=== PATIENT | female | born 1995 | race Hispanic/Latino ===

== ENCOUNTER 2020-11-04 11:30 | Day surgery (SDC) | payer OTHER, SELFPAY ==
[2020-11-04 13:58] VITALS: BMI 37.1
[2020-11-04 14:08] LABS: Amnisure Internal Control QC ACCEPTABLE (ACCEPTABLE); Amnisure Test No Membranes Rupture (No Rupture)
[2020-11-04] MEDS ORDERED: hydrALAZINE 20 MG/ML VIAL SLOW IVP PRN (15:25)
--- NOTE | 2020-11-05 06:24 | PRG ---
DATE OF SERVICE: 11/04/2020 PRIMARY WIRE MACHINE CUTTER: Sisi Eun Pizano, certified nurse-wet roller. CHIEF COMPLAINT: Elevated blood pressure and leakage of fluid. HISTORY OF PRESENT ILLNESS: The patient is a 25-year-old, G1, P0, female with an intrauterine at 39 weeks and 0 days, who was sent from her clinic office for complaints or concerns of elevated blood pressure. Upon arrival, the patient also reports that she has been having about a week's history of some irregular, inconsistent leakage of fluid that she reports as more watery. She denies requiring any panty liners, but states that she changes her underwear about twice a day. She denies vaginal bleeding or uterine contractions. The patient denies fever, cough, headache, chest pain, shortness of breath, nausea, vomiting, diarrhea, constipation, hip problems, knee problems, or muscle weakness. She denies any new rashes or urinary urgency or frequency. PAST MEDICAL HISTORY: Negative. PAST SURGICAL HISTORY: Negative. SOCIAL HISTORY: Denies drug, alcohol, or tobacco use. ALLERGIES: NO KNOWN DRUG ALLERGIES. MEDICATIONS: vitamins. OBSTETRIC LABORATORY DATA: Blood type is O positive. She is GBS positive. She is rubella immune. Hepatitis B surface antigen is negative. RPR is negative. HIV is nonreactive. REVIEW OF SYSTEMS: Per HPI. PHYSICAL EXAMINATION: VITAL SIGNS: Blood pressure on arrival was 135/83, heart rate of 81, respiratory rate of 16, saturating 96% to 98% on room air, and temperature 98.4. Over the course of 3 hours, blood pressures have been taken regularly and have remained in the 120s to 130s over 70s to 80s. She had a single blood pressure at 90 diastolic. GENERAL: She appears to be in no acute distress. She is alert, oriented, cooperative, and pleasant to interact with. HEAD: Normocephalic and atraumatic. LUNGS: Clear to auscultation bilaterally. HEART: Regular rate and rhythm. ABDOMEN: Gravid, soft, and nontender. EXTREMITIES: Nontender and nonedematous. GENITOURINARY: The perineum is moist and is glistening. Vagina is moist. She does have a little bit of a white discharge, reminiscent of physiologic discharge. She has no pooling on Valsalva or cough. Cervical exam is closed, thick, and high per nursing staff. heart tracing shows the fetus with a baseline in the 130s with moderate long-term variability, positive 15 x 15 accelerations, no decelerations. She has some irritability and infrequent contractions. LABORATORY STUDIES: AmniSure test is negative. VP3 is negative for Brittany, Trichomonas, and Gardnerella. The patient has negative protein on her dipstick in clinic. ASSESSMENT AND PLAN: The patient is a 25-year-old, G1, P0, female with an intrauterine at 39 weeks and a day, who was sent to be evaluated for possible -induced hypertension. The patient has no evidence of -induced hypertension at this time with normal blood pressures and negative protein in her urine. The patient also has no evidence of rupture of membranes or any vaginal infection identified by VP3. The discharge that she is experiencing is probably physiologic in nature with a mixture of transudate in this physiologic discharge. Fetus has a category 1 tracing and reactive NST. The patient is being discharged home with reassurance and instructions to follow up with her primary OB in the next 3 to 5 days. Job ID: [id number]
== END 2020-11-04 16:09 | disposition home health service (06) ==
LOC: L&D/OP 11:30
PROVIDERS: ATTEND Student in an Organized Health Care Education/Training Program
DX: O99.891 Other specified diseases and conditions complicating pregnancy (principal); R03.0 Elevated blood-pressure reading, without diagnosis of hypertension; N89.8 Other specified noninflammatory disorders of vagina; Z3A.39 39 weeks gestation of pregnancy
CPT/HCPCS: 84112; 87480; 87510; 87660; 99284

== ENCOUNTER 2020-11-07 10:52 | Inpatient (IN) | payer MEDICAID, OTHER, SELFPAY ==
[2020-11-07] MEDS ORDERED: Bupivacaine HCl 0.25%/Epi 0.0005/PF 10 ML VIAL FS ONE (11:25)
[2020-11-07] MEDS ORDERED: Bupivacaine PF 0.5% 30 ML VIAL ONE (11:25)
[2020-11-07 11:39] VITALS: BMI 37.1
[2020-11-07] MEDS ORDERED: Penicillin G Potassium 5 MILL.UNITS in Sodium Chloride 0.9% 100 ML IVPB SCH (11:45)
[2020-11-07] MEDS ORDERED: hydrALAZINE 20 MG/ML VIAL SLOW IVP PRN (11:45)
[2020-11-07] MEDS ORDERED: Ibuprofen 800 MG TAB PO PRN (11:45)
[2020-11-07] MEDS ORDERED: Lidocaine 1% (PF) 30 ML VIAL SC PRN (11:45)
[2020-11-07] MEDS ORDERED: Acetaminophen 500 MG TAB PO PRN (11:45)
[2020-11-07] MEDS ORDERED: Misoprostol 200 MCG TAB PR PRN (11:45)
[2020-11-07] MEDS ORDERED: Calcium Carbonate 500 MG ChewTAB PO PRN (11:45)
[2020-11-07] MEDS ORDERED: NS / Oxytocin 40 units/1000ml 1,000 ML IV PRN (11:45)
[2020-11-07] MEDS ORDERED: Promethazine HCl 25 MG/ML VIAL IM PRN (11:45)
[2020-11-07] MEDS ORDERED: Butorphanol Tartrate 1 MG/ML VIAL SLOW IVP PRN (11:45)
[2020-11-07] MEDS ORDERED: HYDROcodone/Acetaminophen 5/325 mg Tablet PO PRN ×2 (11:45)
[2020-11-07] MEDS ORDERED: Penicillin G Potassium 5 MILL.UNITS VIAL ONE (11:53)
[2020-11-07 12:07] LABS: Hemoglobin 13.2 g/dL (12.0-16.0); Mean Corpuscular HGB CONC 33.6 g/dL (32.0-36.0); Mean Corpuscular Hemoglobin 29.3 pg (27.0-31.0); Mean Corpuscular Volume 87.2 fL (78.0-98.0); Mean Platelet Volume 8.3 fL (7.4-10.4); Platelet Count 283 thou/uL (130-400); RBC Distribution Width 13.9 % (11.5-14.5); Red Blood Cell (RBC) Count 4.49 mill/uL (4.20-5.40); White Blood Cell (WBC) Count 9.2 thou/uL (4.8-10.8)
[2020-11-07 12:25] LABS: ALT (SGPT) 12 U/L (8-55); AST (SGOT) 19 U/L (5-34); Albumin 3.2 g/dL (3.5-5.0); Alkaline Phosphatase 207 U/L (40-110); Anion Gap 13 mmol/L (10-20); BUN (Urea Nitrogen) 6 mg/dL (7.0-18.7); Bilirubin, Total Less than 0.2 mg/dL (0.2-1.2); Calc. Creatinine Clearance 201 mL/min (70-130); Calcium 8.8 mg/dL (7.8-10.44); Carbon Dioxide 19 mmol/L (22-29); Chloride 108 mmol/L (98-107); Globulin 3.3 g/dL (2.4-3.5); Glucose 85 mg/dL (70-105); Potassium 4.6 mmol/L (3.5-5.1); Protein, Total 6.5 g/dL (6.0-8.3); Sodium 135 mmol/L (136-145)
[2020-11-07 12:43] LABS: Syphilis Antibody Nonreactive (Nonreactive); Syphilis Antibody Index 0.04 S/CO (<1.00 Non-Reactive)
[2020-11-07 12:44] LABS: HBSAg Index 0.17 S/CO (0-0.99); Hep B Surf Ag Non-Reactive S/CO (NonReactive)
[2020-11-07] MEDS: Misoprostol 100 MCG TAB VAG SCH (12:44)
[2020-11-07] MEDS ORDERED: NS w/ Oxytocin 30 units 500 ML ONE (16:54)
[2020-11-07 18:28] LABS: SARS-CoV-2 PCR by NAA Not Detected (NotDetected)
[2020-11-07] MEDS ORDERED: Labetalol HCl 100 MG/20 ML VIAL SLOW IVP PRN (19:37)
[2020-11-07] MEDS: Penicillin G 2.5 MILL.units 2.5 MILL.UNITS in Premix Bag 1 BAG IVPB SCH (20:58)
[2020-11-08] MEDS: Lactated Ringer's 1,000 ML IV SCH ×2 (01:00→05:20)
[2020-11-08] MEDS: Penicillin G 2.5 MILL.units 2.5 MILL.UNITS in Premix Bag 1 BAG IVPB SCH ×5 (01:38→18:34)
[2020-11-08] MEDS ORDERED: Fentanyl 4 mcg/Bup 0.1% Cadd 100 ML ONE ×2 (04:36→20:06)
[2020-11-08] MEDS ORDERED: Ondansetron PF 4 MG/2 ML Vial IVP PRN (05:29)
[2020-11-08] MEDS ORDERED: ePHEDrine 50 MG/ML VIAL SLOW IVP PRN (05:29)
[2020-11-08] MEDS ORDERED: diphenhydrAMINE 50 MG/ML VIAL IVP PRN (05:29)
[2020-11-08] MEDS ORDERED: Promethazine HCl 25 MG/ML VIAL IM PRN (05:29)
[2020-11-08] MEDS ORDERED: Acetaminophen 325 MG TAB PO PRN (05:29)
[2020-11-08] MEDS ORDERED: Lactated Ringer's 500 ML IV PRN (05:29)
[2020-11-08] MEDS ORDERED: Naloxone HCl 0.4 mg/ml Vial IVP PRN ×2 (05:29)
[2020-11-08] MEDS ORDERED: Communication Order-Pharmacy FS SCH (05:30)
[2020-11-08] MEDS ORDERED: Fentanyl 4 mcg/Bupivacaine 0.1% Cassette 100 ML EPIDURAL SCH (05:30)
[2020-11-08] MEDS: Ondansetron PF 4 MG/2 ML Vial IVP PRN ×2 (06:16→17:23)
[2020-11-08] MEDS: Misoprostol 100 MCG TAB VAG SCH (19:49)
[2020-11-08] MEDS ORDERED: Azithromycin 500 MG in Sodium Chloride 0.9% 250 ML 250 ML IVPB SCH (21:00)
[2020-11-08] MEDS ORDERED: Bicitra 30 ML UDCUP PO PRN (21:00)
[2020-11-08] MEDS ORDERED: Famotidine/PF 20 mg/2ml Vial SLOW IVP PRN (21:00)
[2020-11-08] MEDS ORDERED: PHENYLEPHRINE-NS 100 MCG/ML 10 ML SYRINGE ONE (21:13)
[2020-11-08] MEDS ORDERED: Oxytocin 10 UNITS/ML VIAL ONE (21:13)
[2020-11-08] MEDS ORDERED: ePHEDrine 50 MG/ML VIAL ONE (21:13)
[2020-11-08] MEDS ORDERED: Lidocaine 2% 10 ML INJ ONE (21:13)
[2020-11-08] MEDS ORDERED: Ketorolac Tromethamine 30 MG/ML VIAL ONE (21:13)
[2020-11-08] MEDS: CEFAZOLIN 2 GM in Premix Bag 1 BAG IVPB SCH (21:23)
[2020-11-08] MEDS ORDERED: Morphine PF 10 MG/10 ML VIAL ONE (21:47)
[2020-11-08] MEDS ORDERED: Dexamethasone 4 mg/ml Vial ONE (22:04)
[2020-11-08] MEDS ORDERED: Ondansetron PF 4 MG/2 ML Vial ONE (22:04)
[2020-11-09] MEDS ORDERED: Acetaminophen 325 MG TAB PO PRN (01:02)
[2020-11-09] MEDS ORDERED: Lanolin Ointment 7 GM TUBE TOP PRN (01:02)
[2020-11-09] MEDS ORDERED: HYDROcodone/Acetaminophen 5/325 mg Tablet PO PRN ×2 (01:02)
[2020-11-09] MEDS ORDERED: hydrALAZINE 20 MG/ML VIAL SLOW IVP PRN (01:02)
[2020-11-09] MEDS ORDERED: Simethicone Chewable 80 MG TAB PO PRN (01:02)
[2020-11-09] MEDS ORDERED: Promethazine HCl 25 MG SUPP PR PRN (03:58)
[2020-11-09] MEDS ORDERED: Ondansetron PF 4 MG/2 ML Vial IVP PRN (03:58)
[2020-11-09] MEDS ORDERED: Ketorolac Tromethamine 30 MG/ML VIAL IVP PRN (03:58)
[2020-11-09] MEDS ORDERED: Naloxone HCl 0.4 mg/ml Vial IVP PRN ×2 (03:58)
[2020-11-09] MEDS ORDERED: Naloxone HCl 0.4 mg/ml Vial IV PRN (03:58)
[2020-11-09] MEDS ORDERED: Promethazine HCl 25 MG/ML VIAL IM PRN (03:58)
[2020-11-09] MEDS ORDERED: diphenhydrAMINE 50 MG/ML VIAL IVP PRN (03:58)
[2020-11-09] MEDS ORDERED: Communication Order-Pharmacy FS SCH (04:00)
[2020-11-09] MEDS: Lactated Ringer's 1,000 ML IV SCH ×2 (04:30→05:14)
[2020-11-09] MEDS: CEFAZOLIN 2 GM in Premix Bag 1 BAG IVPB SCH (05:11)
[2020-11-09] MEDS: Misoprostol 100 MCG TAB VAG SCH ×3 (05:12→05:16)
[2020-11-09] MEDS: Penicillin G 2.5 MILL.units 2.5 MILL.UNITS in Premix Bag 1 BAG IVPB SCH ×2 (05:14→05:15)
[2020-11-09 05:17] LABS: Hemoglobin 11.7 g/dL (12.0-16.0); Mean Corpuscular HGB CONC 33.8 g/dL (32.0-36.0); Mean Corpuscular Hemoglobin 29.6 pg (27.0-31.0); Mean Corpuscular Volume 87.6 fL (78.0-98.0); Mean Platelet Volume 8.2 fL (7.4-10.4); Platelet Count 245 thou/uL (130-400); RBC Distribution Width 13.7 % (11.5-14.5); Red Blood Cell (RBC) Count 3.95 mill/uL (4.20-5.40)
[2020-11-09] MEDS ORDERED: Ibuprofen 800 MG TAB PO SCH (06:00)
[2020-11-09] MEDS: Prenatal Vitamin 1 TAB PO SCH (08:35)
[2020-11-09] MEDS: Docusate 100 MG CAP PO SCH ×2 (08:35→22:00)
[2020-11-09] MEDS: Ferrous Sulfate 325 MG TAB PO SCH (08:43)
[2020-11-09] MEDS ORDERED: Polyethylene Glycol 3350 17 GM Packet PO SCH (09:00)
[2020-11-09] MEDS ORDERED: Adacel (T-DAP) 0.5 ML SYRINGE IM ONE (09:00)
[2020-11-09] MEDS: HYDROcodone/Acetaminophen 5/325 mg Tablet PO PRN ×3 (14:11→22:20)
[2020-11-10] MEDS: HYDROcodone/Acetaminophen 5/325 mg Tablet PO PRN (06:11)
[2020-11-10] MEDS ORDERED: Polyethylene Glycol 3350 17 GM Packet PO PRN (06:58)
[2020-11-10] MEDS: Ferrous Sulfate 325 MG TAB PO SCH (07:12)
[2020-11-10] MEDS: Prenatal Vitamin 1 TAB PO SCH (08:48)
[2020-11-10] MEDS: Docusate 100 MG CAP PO SCH ×2 (08:48→21:48)
[2020-11-10] MEDS: Ibuprofen 800 MG TAB PO SCH ×2 (13:46→21:49)
[2020-11-11] MEDS: Ibuprofen 800 MG TAB PO SCH ×2 (06:38→08:59)
[2020-11-11] MEDS: Docusate 100 MG CAP PO SCH (08:59)
[2020-11-11] MEDS: Prenatal Vitamin 1 TAB PO SCH (08:59)
[2020-11-11] MEDS: HYDROcodone/Acetaminophen 5/325 mg Tablet PO PRN (09:00)
[2020-11-11 13:15] VITALS: BP 136/95; TEMP 97.5
== END 2020-11-11 13:00 | disposition home or self-care (01) | DRG 788 ==
LOC: L&D 10:52 → 3SW 11-09 01:09
PROVIDERS: ADMIT Obstetrics & Gynecology; ATTEND Obstetrics & Gynecology
PROC: 3E0P7VZ Introduction of Hormone into Female Reproductive, Via Natural or Artificial Opening (ICD-10-PCS; 2020-11-07)
PROC: 10D00Z1 Extraction of Products of Conception, Low, Open Approach (ICD-10-PCS; principal; 2020-11-08)
PROC: 10H07YZ Insertion of Other Device into Products of Conception, Via Natural or Artificial Opening (ICD-10-PCS; 2020-11-08)
PROC: 10907ZC Drainage of Amniotic Fluid, Therapeutic from Products of Conception, Via Natural or Artificial Opening (ICD-10-PCS; 2020-11-08)
PROC: 3E033VJ Introduction of Other Hormone into Peripheral Vein, Percutaneous Approach (ICD-10-PCS; 2020-11-08)
DX: O13.4 Gestational [pregnancy-induced] hypertension without significant proteinuria, complicating childbirth (principal); Z20.822 Contact with and (suspected) exposure to COVID-19; Z3A.39 39 weeks gestation of pregnancy; Z37.0 Single live birth; O62.1 Secondary uterine inertia; O61.0 Failed medical induction of labor
CPT/HCPCS: 36415; 51702; 80053; 85027; 86780; 86850; 86900; 86901; 87340; 87635; J0690; J1100; J1885; J2270; J2405; J2540; J3490; S0020; U0003; U0005